=== PATIENT | female | born 1970 | race American Indian/Alaskan Native ===

== ENCOUNTER → 2024-07-16 | Outpatient (CLI) | payer OTHER, SELFPAY ==
--- NOTE | 2024-07-16 08:15 | XR_ITS ---
Examination: Diagnostic digital mammography, unilateral, right Computer aided detection 3-D breast Tomosynthesis, unilateral Date and time of exam: July 16, 2024 0823 hours INDICATIONS: Mammogram July 03, 2024 8 mm focal asymmetry inner right breast 9:00 position Technique: Nonmagnified MLO, CC views of the right breast have been obtained, reconstructed from 3-D Tomosynthesis images. R2 computer aided detection program utilized for evaluation of suspicious masses and/or abnormal calcifications. 3-D Tomosynthesis images obtained. Findings: The breast is heterogeneously dense, which may obscure small masses No suspicious mass is depicted on the spot compression views Impression: BI-RADS category 2: Benign findings Return to yearly follow-up mammography
== END | disposition home or self-care (01) ==
LOC: CDIM 08:01
PROVIDERS: PCP Physician Assistant; Referring Provider Physician Assistant; Visit Provider Physician Assistant
DX: R92.321 Mammographic fibroglandular density, right breast (principal)
CPT/HCPCS: 77061; 77065; G0279

== ENCOUNTER → 2025-01-31 | Outpatient (CLI) | payer OTHER, SELFPAY ==
--- NOTE | 2025-01-31 09:44 | XR_ITS ---
Examination: Foot, right, 3 views Technique: AP, oblique, lateral views foot, 3 views Date and time of exam: January 31, 2025 1007 hours INDICATIONS: Heel pain one year FINDINGS: Moderate osteopenia 8mm plantar bony calcaneal spur No fracture No cortical bone destruction IMPRESSION: 8mm plantar bony calcaneal spur
== END | disposition home or self-care (01) ==
PROVIDERS: PCP Nurse Practitioner Family; Referring Provider Nurse Practitioner Family; Visit Provider Nurse Practitioner Family
DX: M77.31 Calcaneal spur, right foot (principal)
CPT/HCPCS: 73630

== ENCOUNTER → 2025-05-07 | Outpatient (CLI) | payer OTHER, SELFPAY ==
--- NOTE | 2025-05-07 09:30 | XR_ITS ---
Examination: Abdomen sonogram, complete Date and time of exam: May 07, 2025 0938 hours INDICATIONS: Cholecystectomy, abnormal liver function tests on laboratory examination performed 2 months ago.. Technique: Multiple real-time grayscale transabdominal sonographic images of the abdomen have been obtained. Findings: Absent gallbladder Common bile duct 1.1 cm no definite stones Pancreatic head 2.7 cm Aorta not enlarged. Liver 15.7 cm fatty infiltration 11 mm right lobe liver cyst Normal hepatopedal portal venous flow Patent IVC Right kidney 10.9 cm cortex 1.3 cm Left kidney 10.3 cm cortex 1.7 cm No hydronephrosis. Spleen 8.8 cm IMPRESSION: Enlarged common bile duct 11 mm, clinical correlation advised. If biliary colic is a clinical consideration, suggest MRCP follow-up to exclude common bile duct stones and/or stricture
== END | disposition home or self-care (01) ==
LOC: CDIM 09:21
PROVIDERS: PCP Nurse Practitioner Family; Referring Provider Nurse Practitioner Family; Visit Provider Nurse Practitioner Family
DX: K83.8 Other specified diseases of biliary tract (principal)
CPT/HCPCS: 76700